=== PATIENT | female | born 1990 | race Caucasian/White ===

== ENCOUNTER 2017-09-16 15:14 | Outpatient (CLI) | END 2017-09-16 16:58 | disposition home or self-care (01) ==

== ENCOUNTER 2017-09-18 20:17 | Outpatient (CLI) | END 2017-09-18 23:52 | disposition home or self-care (01) ==

== ENCOUNTER 2017-09-23 18:52 | Outpatient (CLI) | END 2017-09-23 21:05 | disposition home or self-care (01) ==

== ENCOUNTER 2017-11-01 02:32 | Inpatient (IN) | END 2017-11-03 14:37 | disposition home or self-care (01) | DRG 775 ==